=== PATIENT | male | born 1935 | race Caucasian/White ===

== ENCOUNTER 2016-06-14 13:38 | Inpatient (IN) ==
--- NOTE | 2016-06-14 13:58 | Emergency Department Note ---
Disposition Clinical Impression: History of fall, Hyperkalemia, Atypical chest pain Skin tear of elbow without complication Qualifiers: Encounter type: initial encounter Laterality: left Qualified Code(s): S51.012A - Laceration without foreign body of left elbow, initial encounter Skin tear of right hand without complication Qualifiers: Encounter type: initial encounter Qualified Code(s): S61.411A - Laceration without foreign body of right hand, initial encounter Disposition: Admitted As Inpatient Condition: Good Fall HPI - General Chief Complaint: ED Wound/Laceration Stated Complaint: skin tear lt elbow Time Seen by Provider: 06/14/16 13:56 Source: patient Mode of arrival: EMS Limitations: no limitations Nursing Notes Reviewed: Yes Vital Signs Reviewed: Yes - History of Present Illness HPI Narrative: Patient reports that he was walking to his house when he tripped going in his front door. States he fell forward and sustained injury on the lateral aspect of his left elbow and a laceration on his right fifth finger. He thinks he might above the back of his head but states he has not needed it feel any spot of tenderness or pain. He states that everything else is okay. He denies pain , neck pain or back pain. He denies any injury or pain to his shoulders or upper extremities other than the left elbow and right fifth finger. He denies pain to his hips, low back or lower extremities. He denies that he has had chest pain, palpitations or shortness of breath. He denies any feeling of presyncope or history of seizure disorder has not been having abdominal pains, nausea, vomiting or diarrhea. He states he did not sleep well last night because an old friend had just recently . Pt Subjective Complaint: fall Onset (ago): Just [employer] Fall From: standing Fall Witnessed: yes Place Fall Occurred: home Loss of Consciousness: none Prolonged Down Time?: no Symptoms Prior to Fall: none Context: tripped/slipped Location of injury - extremities: Left: elbow, Right: hand Severity: mild Quality: dull Associated symptoms (after fall): Reports: denies - Related Data Home Medications Medication Instructions Recorded Confirmed Clopidogrel [Plavix] 75 mg PO DAILY 12/23/14 06/14/16 Isosorbide MONOnitrate [Isosorbide 60 mg PO QAM 12/23/14 06/14/16 Mononitrate] Metoprolol [Lopressor] 25 mg PO DAILY 12/23/14 06/14/16 Mirtazapine [Remeron] 30 mg PO QAM 12/23/14 06/14/16 Oxycodone HCl/Acetaminophen 1 each PO Q4-6H PRN 12/23/14 06/14/16 [Percocet 10-325 mg Tablet] Tamsulosin [Flomax] 0.4 mg PO DAILY 12/23/14 06/14/16 Amitriptyline [Elavil] 25 mg PO HS 06/14/16 06/14/16 Gabapentin [Neurontin] 100 mg PO TID 06/14/16 06/14/16 Previous Rx's Medication Instructions Recorded Lisinopril [Zestril] 20 mg PO DAILY #30 tablet 12/24/14 Allergies Allergy/AdvReac Type Severity Reaction Status Date / Time No Known Allergies Allergy Verified 12/23/14 10:11 All systems ED: reviewed and negative except as stated. Fall PMH - Past Medical History Medical history: Reports: arthritis, cancer, CHF, COPD, dementia, diabetes, hyperlipidemia, hypertension, myocardial infarction, other Surgical history: Reports: cholecystectomy, splenectomy Psychiatric history: Reports: no psych history - Social History Smoking Status: Unknown if ever smoked Alcohol use: Reports: none Drug use: Reports: none Physical Exam - General Limitations: no limitations General appearance: alert, in no apparent distress - Head Head exam: atraumatic, normocephalic, normal inspection, other (No tenderness to palpation about the scalp or face.) - Eye Eye exam: Present: normal appearance, PERRL, EOMI - ENT ENT exam: normal exam, normal oropharynx, mucous membranes moist - Neck Neck exam: Present: normal inspection, full ROM, trachea midline. Absent: tenderness - Chest Chest inspection: Present: normal inspection, symmetric chest wall rise - Respiratory Respiratory exam: Present: normal lung sounds bilaterally. Absent: respiratory distress, wheezes, prolonged expiratory phase - Cardiovascular Cardiovascular exam: Present: regular rate, normal rhythm, normal heart sounds - Abdominal Exam Abdominal exam: Present: soft, Non-Tender, normal bowel sounds. Absent: tenderness, distention, guarding, rebound, rigidity - Expanded Upper Extremity Exam Shoulder exam: Present: normal inspection, full ROM. Absent: tenderness, swelling Arm exam: Present: normal inspection, full ROM Elbow exam: Present: full ROM, other (She has a small skin tear lateral aspect of the left elbow. There is no significant tenderness or swelling. He demonstrates good range of motion of the elbow, wrist and digits.) Hand exam: Present: normal inspection, full ROM. Absent: tenderness, swelling Vascular exam: Normal: capillary refill, radial pulse - Expanded Lower Extremity Exam Hip/Pelvis exam: Present: normal inspection, full ROM. Absent: tenderness, swelling Upper leg exam: Present: normal inspection, full ROM Knee exam: Present: normal inspection, full ROM. Absent: tenderness, swelling Lower leg exam: Present: normal inspection, full ROM Ankle exam: Present: normal inspection, full ROM. Absent: tenderness, swelling Foot/toe exam: Present: normal inspection, full ROM Neurovascular/Tendon exam: Present: normal capillary refill. Absent: motor deficit, sensory deficit, tendon deficit Gait: not tested/not observed - Back Exam Back exam: Present: normal inspection, full ROM. Absent: tenderness - Neurological Exam Neurological exam: Present: alert, oriented X3, reflexes normal. Absent: motor sensory deficit - Psychiatric Psychiatric exam: Present: normal affect, normal mood - Skin Skin exam: Present: warm, dry, intact, normal color Course Course Narrative: Impression discussed at length with the patient. She seems very bright and alert at this time. He has good recall of recent events. I do not believe imaging will be helpful and he feels quite comfortable going without. We will perform local wound care and I believe he is stable for discharge. 1420: On plan to discharge the patient has now related to history of some anterior chest heaviness for 2 weeks. He still denies any other associated symptoms and states "he is just a burn" and probably should have been checked out for this sometime in the last 2 weeks. I did discuss with family present that he had been asked about any chest pain, palpitation problems earlier, and he had completely denied any. Given this new complaint I have ordered basic labs, EKG and chest x-ray. 1520: With the elevated potassium I have discussed care with the family and Dr. Ruiz. The patient will be brought in for serial cardiac enzymes as well as IV fluids and following of his potassium. Care is being correlated to the floor. The patient is in stable condition. 1605: The patient's has presented with a more accurate medication list for this patient. His medications to be administered and patient have been modified to reflect these changes. Vital Signs Temperature 97.6 F 06/14/16 13:42 Pulse Rate 53 06/14/16 13:42 Respiratory Rate 16 06/14/16 13:42 Blood Pressure 122/53 06/14/16 13:42 O2 Sat by Pulse Oximetry 94 L 06/14/16 13:42 Temperature 97.6 F 06/14/16 13:42 Pulse Rate 60 06/14/16 15:50 Respiratory Rate 18 06/14/16 15:50 Blood Pressure 154/68 06/14/16 15:50 O2 Sat by Pulse Oximetry 95 06/14/16 15:50 Oxygen Delivery Oxygen Delivery Nasal Cannula Fall - Differential Diagnosis Likely: traumatic injury - Medical Records Medical records reviewed: Yes I reviewed the patient's medical records. - Lab Data Lab results reviewed: Yes I reviewed the patient's lab results. Result diagrams: 06/14/16 14:45 06/14/16 14:40 Lab Results 06/14/16 06/14/16 06/14/16 Range/Units 14:40 14:40 14:45 WBC 8.7 (4.3-11.1) K/mcL RBC 2.89 L (4.19-5.50) M/mcL Hgb 11.9 L (12.9-16.9) g/dL Hct 34.5 L (37.5-50.1) % MCV 119.4 H (83.0-100.0) fL MCH 41.2 H (28.0-33.3) pg MCHC 34.5 (31.6-35.5) g/dL RDW 14.6 H (11.5-14.5) % Plt Count 251 (140-400) K/mcL MPV 10.0 (9.4-12.4) fL Immature Gran % 0.2 (0-4) % Seg Neutrophils % 80.0 % Lymphocytes % 13.6 % Monocytes % 5.6 % Eosinophils % 0.5 % Basophils % 0.1 % Neutrophils # 7.0 (1.6-8.9) K/mcL Lymphocytes # 1.2 (0.6-4.6) K/mcL Monocytes # 0.5 (0.0-1.3) K/mcL Eosinophils # 0.0 (0.0-0.6) K/mcL Basophils # 0.0 (0.0-0.2) K/mcL Nucleated RBCs/100 WBC 1.5 H (0) /100 WBC Platelet Estimate Normal (Normal) Polychromasia 1+ A (Not Present) Anisocytosis 1+ A (Not Present) Macrocytosis Present A (Not Present) Sodium 138 (136-145) mEq/L Potassium 5.8 H (3.5-4.5) mEq/L Chloride 109 (98-109) mEq/L Carbon Dioxide 20 (19-29) mEq/L BUN 34 H (8-26) mg/dL Creatinine 1.17 (0.72-1.25) mg/dL Est GFR ( Amer) > 60 (> 60) Est GFR (Non-Af Amer) 60 (> 60) BUN/Creatinine Ratio 29 H (6-26) Glucose 127 H (70-99) mg/dL Calculated Osmolality 295 (280-300) Calcium 9.4 (8.6-10.8) mg/dL Troponin I 0.02 (0-0.03) ng/mL B-Natriuretic Peptide (0-100) pg/mL 06/14/16 Range/Units 14:45 WBC (4.3-11.1) K/mcL RBC (4.19-5.50) M/mcL Hgb (12.9-16.9) g/dL Hct (37.5-50.1) % MCV (83.0-100.0) fL MCH (28.0-33.3) pg MCHC (31.6-35.5) g/dL RDW (11.5-14.5) % Plt Count (140-400) K/mcL MPV (9.4-12.4) fL Immature Gran % (0-4) % Seg Neutrophils % % Lymphocytes % % Monocytes % % Eosinophils % % Basophils % % Neutrophils # (1.6-8.9) K/mcL Lymphocytes # (0.6-4.6) K/mcL Monocytes # (0.0-1.3) K/mcL Eosinophils # (0.0-0.6) K/mcL Basophils # (0.0-0.2) K/mcL Nucleated RBCs/100 WBC (0) /100 WBC Platelet Estimate (Normal) Polychromasia (Not Present) Anisocytosis (Not Present) Macrocytosis (Not Present) Sodium (136-145) mEq/L Potassium (3.5-4.5) mEq/L Chloride (98-109) mEq/L Carbon Dioxide (19-29) mEq/L BUN (8-26) mg/dL Creatinine (0.72-1.25) mg/dL Est GFR ( Amer) (> 60) Est GFR (Non-Af Amer) (> 60) BUN/Creatinine Ratio (6-26) Glucose (70-99) mg/dL Calculated Osmolality (280-300) Calcium (8.6-10.8) mg/dL Troponin I (0-0.03) ng/mL B-Natriuretic Peptide 541 H (0-100) pg/mL - Radiology Data Radiology results reviewed: Yes I reviewed the patient's radiology results. Single view chest x-ray is performed. This does not demonstrate evidence for infiltrate, effusion, pneumothorax, foreign body or heart failure. The cardiac silhouette is normal. I do not see abnormality to the osseous structures of the chest. This is on my interpretation. Impressions Chest X-Ray 06/14/16 14:23 IMPRESSION: Interval development of pulmonary vascular congestion, with left basilar atelectasis. D/ / Santana Schaefer MD / Santana Schaefer MD Interpreting Provider: Santana Schaefer MD - EKG Data EKG attestation: Yes I reviewed and interpreted this EKG. EKG shows normal: sinus rhythm, axis, QRS complexes, ST-T waves Rate: bradycardia (57) Heart block present: 1st Degree Interpretation: no acute changes
[2016-06-14 15:04] LABS: BUN/Creatinine Ratio 29 (6-26); Blood Urea Nitrogen 34 mg/dL (8-26); Calcium 9.4 mg/dL (8.6-10.8); Carbon Dioxide 20 mEq/L (19-29); Chloride 109 mEq/L (98-109); Glucose 127 mg/dL (70-99); Osmolality,Calculated 295 (280-300); Potassium 5.8 mEq/L (3.5-4.5); Sodium 138 mEq/L (136-145); eGFR For African Americans > 60 (> 60); eGFR For Non-African Americans 60 (> 60)
[2016-06-14] MEDS ORDERED: 0.9 % Sodium Chloride 1,000 ML IVC SCH (15:15)
[2016-06-14 15:17] LABS: Basophils % 0.1 %; Eosinophils % 0.5 %; Hematocrit 34.5 % (37.5-50.1); Hemoglobin 11.9 g/dL (12.9-16.9); Immature Granulocytes % 0.2 % (0-4); Lymphocytes # 1.2 K/mcL (0.6-4.6); Lymphocytes % 13.6 %; Mean Corpuscular HGB Conc 34.5 g/dL (31.6-35.5); Mean Corpuscular Hemoglobin 41.2 pg (28.0-33.3); Mean Corpuscular Volume 119.4 fL (83.0-100.0); Monocytes # 0.5 K/mcL (0.0-1.3); Monocytes % 5.6 %; Nucleated Red Blood Cells 1.5 /100 WBC (0); Platelet Count 251 K/mcL (140-400); Red Blood Count 2.89 M/mcL (4.19-5.50); Red Cell Distribution Width 14.6 % (11.5-14.5)
[2016-06-14 15:41] LABS: Anisocytosis 1+ (Not Present); Macrocytosis Present (Not Present); Platelet Estimate Normal (Normal); Polychromasia 1+ (Not Present)
[2016-06-14] MEDS ORDERED: Naloxone 0.4 MG/ML INJ IVP PRN (17:26)
[2016-06-14] MEDS ORDERED: *HR* OxyCODONE/APAP 10/325 TABLET PO PRN (17:26)
[2016-06-14] MEDS ORDERED: Ondansetron 4 MG/2 ML VIAL IVP PRN (17:26)
[2016-06-14] MEDS ORDERED: MOM Conc 10 ML UD.LIQ PO PRN (17:26)
[2016-06-14] MEDS: 0.9 % Sodium Chloride 1,000 ML IVC SCH (17:47)
[2016-06-14] MEDS: Mirtazapine 15 MG TABLET PO SCH (21:39)
[2016-06-14] MEDS: Acetaminophen 325 MG TABLET PO PRN (21:40)
[2016-06-14] MEDS: Gabapentin 100 MG CAPSULE PO SCH (21:41)
[2016-06-15] MEDS: Albuterol 2.5 MG/3 ML NEBULIZER IH PRN (02:19)
[2016-06-15 05:58] LABS: BUN/Creatinine Ratio 31 (6-26); Blood Urea Nitrogen 29 mg/dL (8-26); Carbon Dioxide 21 mEq/L (19-29); Chloride 112 mEq/L (98-109); Glucose 87 mg/dL (70-99); Osmolality,Calculated 303 (280-300); Potassium 4.8 mEq/L (3.5-4.5); Sodium 144 mEq/L (136-145); eGFR For African Americans > 60 (> 60); eGFR For Non-African Americans > 60 (> 60)
[2016-06-15] MEDS ORDERED: Nitroglycerin 0.4 MG TAB.SUBL SL ONE (07:18)
[2016-06-15] MEDS: 0.9 % Sodium Chloride 1,000 ML IVC SCH (07:23)
[2016-06-15] MEDS: Nitroglycerin 0.4 MG TAB.SUBL SL PRN ×2 (07:26→07:45)
[2016-06-15] MEDS: Gabapentin 100 MG CAPSULE PO SCH ×3 (08:11→22:37)
[2016-06-15] MEDS ORDERED: Lisinopril 20 MG TABLET PO SCH (09:00)
[2016-06-15] MEDS ORDERED: Isosorbide MONOnitrate (24 HR) 60 MG TAB.ER.24H PO SCH ×2 (09:00→11:29)
--- NOTE | 2016-06-15 11:33 | Internal Med History&Physical ---
Date of Encounter: 06/15/16 Time of Encounter: 10:50 Assessment and Plan (1) Hyperkalemia Current visit: No Status: Acute He has been given Kayexalate in emergency room. Lisinopril will be discontinued. IV fluids will be given and further workup done as needed. (2) Azotemia Current visit: Yes Status: Acute He will be given IV fluids and renal indices will be monitored. (3) Elevated brain natriuretic peptide (BNP) level Current visit: Yes Status: Acute Suspect diastolic etiology since echocardiogram July 2015 showed LVEF of 60-65%. I will increase his Imdur and add low-dose Bumex. Lisinopril be discontinued because of hyperkalemia. Beta peter will be held because of severe bradycardia. (4) Chest pain Current visit: Yes Status: Acute Repeat cardiac enzymes were ordered through emergency room. Qualifiers: Chest pain type: unspecified Qualified Code(s): R07.9 - Chest pain, unspecified (5) Hypertension Current visit: No Status: Chronic Will hold lisinopril because of hyperkalemia. Will hold metoprolol because of bradycardia. We will monitor blood pressure and adjust medications as needed. Qualifiers: Hypertension type: essential hypertension Qualified Code(s): I10 - Essential (primary) hypertension Internal Medicine - H&P: HPI Chief complaint: Fall and weakness Admitted From: Home Plans for Post Hospital Care: Home History of present illness: Mr. Fuentes is a 80 year old male who came to emergency room stating he had fallen onto cement as he was attempting to enter his home and was unable to get up. He was found by a friend approximately 45 minutes after the fall and was brought to emergency room by squad. He was treated for skin lacerations but was also found to have hyperkalemia and azotemia. He was admitted to [facility] floor for ongoing care needs. He states he typically uses a cane at home to walk but does not do much ambulation or activity because of dyspnea and arthritis. He did not have a syncopal or near syncopal episode. He was hospitalized last at [facility] November 2014 after admission for difficulty walking and balance abnormalities. He reports he has been evaluated at [facility] for this problem. He denies large distribution strokes or seizures. He states he has been diagnosed with mild dementia and takes Namenda. Past Med Surg Social Fam HX - Past Medical History Medical history: arthritis, cancer, CHF, COPD, dementia, diabetes, hyperlipidemia, hypertension, myocardial infarction, other Psychiatric history: no psych history - Past Surgical History Surgical History: cholecystectomy, splenectomy - Social History Smoking Status: Former smoker Smokeless Tobacco Status: No Alcohol use: none Drug use: none Internal Medicine - H&P: Meds Clopidogrel [Plavix] 75 mg PO DAILY 12/23/14 [History] Isosorbide MONOnitrate [Isosorbide Mononitrate] 60 mg PO QAM 12/23/14 [History] Metoprolol [Lopressor] 25 mg PO DAILY 12/23/14 [History] Mirtazapine [Remeron] 30 mg PO HS 12/23/14 [History] Oxycodone HCl/Acetaminophen [Percocet 10-325 mg Tablet] 1 each PO Q4-6H PRN [History] Tamsulosin [Flomax] 0.4 mg PO DAILY 12/23/14 [History] Lisinopril [Zestril] 20 mg PO DAILY #30 tablet 12/24/14 [Rx] Amitriptyline [Elavil] 25 mg PO HS 06/14/16 [History] Gabapentin [Neurontin] 100 mg PO TID 06/14/16 [History] Allergies No Known Allergies Allergy (Verified 12/23/14 10:11) All Systems PM: A 10-system review of systems was performed and is negative for pertinent findings except as documented above in the HPI. Review of systems: Gen.: His weight has increased from 99.201 kg on 12/24/2014 to 104.326 kg on admission now Cardiovascular: He has history of hypertension. He has known ASHD status post ID in the past. He had stent placed in his heart approximately 2006 another in 2007. His most recent heart catheterization was 2011. 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 He denies known DVT or pulmonary embolus. He had an echocardiogram 08/05/2015 which showed LVEF of 60-65%. There was mild diastolic dysfunction seen. The estimated RVSP was elevated at 52 mmHg. There was LAE of 4.3 cm. Respiratory: He smoked from approximately age [age] up to 3 packs per day. He wears oxygen at bedtime and when necessary during the daytime. He has a diagnosis of FABIOLA. He has been diagnosed with COPD. He had chest CT September 2014 which showed stable nodules but no acute abnormalities. He had pulmonary function test March 2015 which showed moderate obstructive lung disease. GI: He has had cholecystectomy and splenectomy. He denies disorders of his liver or exocrine pancreas : He has BPH. He denies other kidney or bladder disorders. Neurologic: As per history of present illness Endocrine: Old records report he was diagnosed with DM 2 in 2004 but he denies this diagnosis. His most recent Himmelman A1c several months ago was 4.4%. He had a thyroid nodule found at [facility] in 2014. No intervention has been done. He has history of hyperlipidemia Hematology/oncology: He was diagnosed with leukemia approximately 2005 but states he is now cancer free. He had splenectomy performed as part of the treatment regimen. He follows with a [facility] oncologist. He denies other internal malignancies or blood disorders. He has macrocytic anemia. 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 He states he has diffuse joint pain. He has not been diagnosed with gout Psychiatric: He has received medication for anxiety and depression but denies these diagnoses or other mental health issues - Constitutional Vitals: Temp Pulse Resp BP Pulse Ox 97.4 F L 67 18 152/79 94 L 06/15/16 06:22 06/15/16 06:22 06/15/16 06:22 06/15/16 06:22 06/15/16 06:22 Exam: Gen.: He is a well-developed well-nourished male lying in bed who appears in no acute distress at present time HEENT: Head is atraumatic and normocephalic. Eyes: EOMI. There is no scleral icterus. Mouth: Mucosa is moist. Neck: Supple and nontender. There is no thyromegaly or adenopathy noted. Heart: Regular with occasional ectopic beat. No murmurs are heard Lungs: No wheezes or crackles are heard. There is no egophony. Abdomen: Soft and nontender. No masses or guarding are noted. There is a well- healed left lower quadrant oblique surgical scar from presumed splenectomy Extremities: There is trace to 1+ edema the lower legs bilaterally. Dorsalis pedis and posterior tibial pulses are trace palpable. 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 He is wearing an immobilizer splint on his right fifth finger Neurologic: Mental status: He is talkative and seems to be a reliable historian. Cranial nerves: Smile is symmetric. Forehead wrinkles bilaterally. Tongue protrudes midline. EOMI. Motor: There is no pronator drift. Cerebellar: Finger to nose is intact bilaterally. Skin: Warm and dry Internal Med - H&P Results - Labs CBC & Chem 7: 06/14/16 14:45 06/15/16 05:30 Labs: BMP 06/15/16 05:30 Sodium 144 Potassium 4.8 H D Chloride 112 H Carbon Dioxide 21 BUN 29 H Creatinine 0.95 Glucose 87 Calcium 9.0 Cardiac Enzymes 06/14/16 06/14/16 06/15/16 Range/Units 18:30 23:15 05:30 Troponin I 0.02 0.02 0.02 (0-0.03) ng/mL
--- NOTE | 2016-06-15 13:14 | Electrocardiograph Report ---
[address] [address] Test Date: 2016-06-14 Pat Name: Ye Fuentes Department: [id number] Room: [facility] Gender: M [employer]: [id number] : 1935 Requested By: Joao Enrique Order Number: [id number] Reading MD: Phani Mosley MD Measurements Intervals [place] Rate: 57 P: 42 MS: 302 QRS: -3 QRSD: 107 T: 31 QT: 463 QTc: 458 Interpretive Statements SINUS BRADYCARDIA WITH FIRST DEGREE AV BLOCK LOW QRS VOLTAGE IN PRECORDIAL LEADS Electronically Signed On 06-15-2016 13:12:52 EDT by Phani Mosley MD
[2016-06-15] MEDS: Aspirin 81 MG TAB.CHEW PO SCH (13:25)
[2016-06-15] MEDS: Bumetanide 1 MG TABLET PO SCH (13:25)
[2016-06-15] MEDS: *HR* Enoxaparin 40 MG/0.4 ML SYRINGE SQ SCH (15:09)
[2016-06-15] MEDS: Mirtazapine 15 MG TABLET PO SCH (22:36)
[2016-06-15] MEDS: Acetaminophen 325 MG TABLET PO PRN (22:36)
[2016-06-16] MEDS: *HR* Enoxaparin 40 MG/0.4 ML SYRINGE SQ SCH (05:04)
[2016-06-16] MEDS: Acetaminophen 325 MG TABLET PO PRN (05:04)
[2016-06-16 05:35] LABS: Basophils % 0.2 %; Eosinophils # 0.4 K/mcL (0.0-0.6); Eosinophils % 4.3 %; Hematocrit 33.9 % (37.5-50.1); Hemoglobin 11.9 g/dL (12.9-16.9); Immature Granulocytes % 0.2 % (0-4); Lymphocytes # 3.5 K/mcL (0.6-4.6); Lymphocytes % 37.2 %; Mean Corpuscular HGB Conc 35.1 g/dL (31.6-35.5); Mean Corpuscular Hemoglobin 41.5 pg (28.0-33.3); Mean Corpuscular Volume 118.1 fL (83.0-100.0); Mean Platelet Volume 9.9 fL (9.4-12.4); Monocytes % 10.9 %; Neutrophils # 4.4 K/mcL (1.6-8.9); Nucleated Red Blood Cells 1.1 /100 WBC (0); Platelet Count 239 K/mcL (140-400); Red Blood Count 2.87 M/mcL (4.19-5.50); Segmented Neutrophils % 47.2 %
[2016-06-16 05:50] LABS: BUN/Creatinine Ratio 25 (6-26); Blood Urea Nitrogen 20 mg/dL (8-26); Calcium 8.7 mg/dL (8.6-10.8); Carbon Dioxide 22 mEq/L (19-29); Chloride 109 mEq/L (98-109); Glucose 92 mg/dL (70-99); Magnesium 1.9 mg/dL (1.6-2.6); Osmolality,Calculated 300 (280-300); Potassium 4.4 mEq/L (3.5-4.5); Sodium 144 mEq/L (136-145); eGFR For African Americans > 60 (> 60); eGFR For Non-African Americans > 60 (> 60)
[2016-06-16 06:52] LABS: Macrocytosis Present (Not Present)
[2016-06-16 08:07] VITALS: BP 165/76
[2016-06-16] MEDS: Albuterol 2.5 MG/3 ML NEBULIZER IH PRN (08:20)
[2016-06-16] MEDS: Bumetanide 1 MG TABLET PO SCH (08:58)
[2016-06-16] MEDS: Aspirin 81 MG TAB.CHEW PO SCH (09:00)
[2016-06-16] MEDS: Gabapentin 100 MG CAPSULE PO SCH (09:00)
[2016-06-16] MEDS ORDERED: Isosorbide MONOnitrate (24 HR) 60 MG TAB.ER.24H PO SCH (09:00)
--- NOTE | 2016-06-16 09:39 | Discharge Summary ---
Date of Encounter: 06/16/16 Time of Encounter: 09:25 - Discharge Diagnosis (1) Hyperkalemia Priority: Primary Status: Resolved (2) Azotemia Priority: Secondary Status: Resolved (3) Elevated brain natriuretic peptide (BNP) level Priority: Secondary Status: Acute (4) Chest pain Priority: Secondary Status: Acute Qualifiers: Chest pain type: unspecified Qualified Code(s): R07.9 - Chest pain, unspecified (5) Hypertension Priority: Secondary Status: Chronic Qualifiers: Hypertension type: essential hypertension Qualified Code(s): I10 - Essential (primary) hypertension - Discharge Medications Prescriptions: Amlodipine [Norvasc] 5 mg PO DAILY #30 tablet Bumetanide [Bumex] 0.5 mg PO DAILY #15 tablet Isosorbide MONOnitrate (24 HR) [Imdur] 120 mg PO QAM #60 tab.er.24h Home Medications: Clopidogrel [Plavix] 75 mg PO DAILY 12/23/14 [History] Mirtazapine [Remeron] 30 mg PO HS 12/23/14 [History] Oxycodone HCl/Acetaminophen [Percocet 10-325 mg Tablet] 1 each PO Q4-6H PRN [History] Tamsulosin [Flomax] 0.4 mg PO DAILY 12/23/14 [History] Amitriptyline [Elavil] 25 mg PO HS 06/14/16 [History] Gabapentin [Neurontin] 100 mg PO TID 06/14/16 [History] Amlodipine [Norvasc] 5 mg PO DAILY #30 tablet 06/16/16 [Rx] Aspirin 81 mg PO DAILY tab.chew 06/16/16 [Rx] Bumetanide [Bumex] 0.5 mg PO DAILY #15 tablet 06/16/16 [Rx] Isosorbide MONOnitrate (24 HR) [Imdur] 120 mg PO QAM #60 tab.er.24h 06/16/16 [Rx ] Allergies/Adverse Reactions: Allergies No Known Allergies Allergy (Verified 12/23/14 10:11) Procedures/tests Complete & Pending: Procedures Performed prior 72 hours Category Date Time Status ECG 12 lead ECG [ECG] Routine Y 06/15/16 07:40 Completed Date of admission: 06/15/16 14:08 Primary care physician: Yossi Smith MD - Patient Status Disposition: Home Health Service Condition: Good Overall status at discharge: patient is progressing back to baseline - Discharge Instructions Follow Up With: Yossi Smith MD [Primary Care Provider] - 1 week - Diet and Activity Activity: resume usual activities as tolerated Diet: advance to your usual diet Hospital course: Mr. Fuentes is a 80 year old male who came to emergency room stating he had fallen onto cement as he was attempting to enter his home and was unable to get up. He was found by a friend approximately 45 minutes after the fall and was brought to emergency room by squad. He was treated for skin lacerations but was also found to have hyperkalemia and azotemia. He was admitted to [facility] for ongoing care needs. Initial orders were written by the emergency room physician. I saw him on June 15 and performed the history and physical. Lisinopril and metoprolol were held. He was given a single dose of Kayexalate and emergency room. IV fluids were started. His potassium normalized to 4.4 on the day of discharge. His BUN and creatinine normalized to 20 and 0.81 respectively the day of discharge. Bradycardia resolved after holding metoprolol. He will be placed on Norvasc for hypertension at discharge. He had no further complaints of discomfort in his chest. There were no new problems and on June 16 he felt stable for discharge home. He will follow with Dr. Yossi Smith within 1 week. - Time Spent with Patient Total time spent providing and/or coordinating discharge services: - Constitutional Vitals: Temp Pulse Resp BP Pulse Ox 97.8 F 56 15 165/76 96 06/16/16 08:01 06/16/16 00:10 06/16/16 08:23 06/16/16 08:01 06/16/16 08:23
--- NOTE | 2016-06-16 09:45 | Physician Discharge Referral ---
Home Health/Hosp Referral Info Transfer to: Home Health Attending Provider: Joseph Provider in Charge Post Discharge: PCP (Yossi Smith M.D.) - Diagnosis (1) Hyperkalemia Priority: Primary Status: Resolved (2) Azotemia Priority: Secondary Status: Resolved (3) Elevated brain natriuretic peptide (BNP) level Priority: Secondary Status: Acute (4) Chest pain Priority: Secondary Status: Acute (5) Hypertension Priority: Secondary Status: Chronic - Respiratory Orders Smoking Cessation: Smoking cessation has been advised. For more information, call the [employer] Quit Line at 9-238-DTIX-NOW. - Dressing/Wound Care Site: Monitor skin tear of left elbow and right fifth finger - Diet/Nutrition Diet/Nutrition Orders: Regular - Activity Activity Orders: Ambulate - Services Needed Following services are medically necessary services: Nursing, Home Health Aide, Physical Therapy, Occupational Therapy - Transfer Medications Prescriptions: Amlodipine [Norvasc] 5 mg PO DAILY #30 tablet Bumetanide [Bumex] 0.5 mg PO DAILY #15 tablet Isosorbide MONOnitrate (24 HR) [Imdur] 120 mg PO QAM #60 tab.er.24h Home Medications: Clopidogrel [Plavix] 75 mg PO DAILY 12/23/14 [History] Mirtazapine [Remeron] 30 mg PO HS 12/23/14 [History] Oxycodone HCl/Acetaminophen [Percocet 10-325 mg Tablet] 1 each PO Q4-6H PRN [History] Tamsulosin [Flomax] 0.4 mg PO DAILY 12/23/14 [History] Amitriptyline [Elavil] 25 mg PO HS 06/14/16 [History] Gabapentin [Neurontin] 100 mg PO TID 06/14/16 [History] Amlodipine [Norvasc] 5 mg PO DAILY #30 tablet 06/16/16 [Rx] Aspirin 81 mg PO DAILY tab.chew 06/16/16 [Rx] Bumetanide [Bumex] 0.5 mg PO DAILY #15 tablet 06/16/16 [Rx] Isosorbide MONOnitrate (24 HR) [Imdur] 120 mg PO QAM #60 tab.er.24h 06/16/16 [Rx ] Allergies/Adverse Reactions: Allergies No Known Allergies Allergy (Verified 09/29/15 10:11) Certification: Further, I certify that my clinical findings support that this patient is homebound (i.e. absences from home require considerable and taxing effort and are for medical reasons or [employer] services or infrequently or short duration when for other reasons) because: Homebound Reason: Leaving home requires considerable and taxing effort due to condition (DJD with difficulty ambulating, diastolic heart failure) Attestation: My signature below is to certify that this patient is under my care and that I, or nurse practitioner, or a physician's catalog library assistant working with me, has a face-to -face encounter with this patient.
--- NOTE | 2016-06-16 16:17 | Electrocardiograph Report ---
[place] [id number] Test Date: 2016-06-15 Pat Name: Ye Fuentes Department: [id number] Room: [facility] Gender: M Chef: [id number] : 1935 Requested By: Santana Ruiz Order Number: [id number] Reading MD: Phani Mosley MD Measurements Intervals [place] Rate: 57 P: WI: 0 QRS: 6 QRSD: 101 T: 54 QT: 437 QTc: 430 Interpretive Statements ATRIAL FIBRILLATION WITH SLOW VENTRICULAR RESPONSE LOW QRS VOLTAGE IN PRECORDIAL LEADS Electronically Signed On 06-16-2016 16:16:13 EDT by Phani Mosley MD
== END 2016-06-16 10:45 | disposition home health service (06) | DRG 641 ==
LOC: INPPIK 13:38 → EMEROOPIK 13:38 → INPPIK 16:22
PROVIDERS: ADMIT Internal Medicine; ATTEND Internal Medicine